=== PATIENT | male | born 2000 | race Caucasian/White ===

== ENCOUNTER 2025-05-22 12:53 | Outpatient (REF) | payer OTHER, SELFPAY ==
--- NOTE | 2025-05-22 12:59 | EMG_ITS ---
Chief complaint: Elbow pain, forearm pain and paresthesias Been told in the past to have bilateral cubital tunnel syndrome, previously EMG is not available for my review. Reason for referral: Evaluate for ulnar neuropathy versus Carpal Tunnel Syndrome Referred by: Dr. Don Wagner Procedure done: Upper extremity NCS/EMG Precautions and/or limitations: None The limb temperature was monitored continuously and remained between 32-36 degrees C during the performance of the NCS. Ulnar motor NCS was performed with moderate elbow flexion between 70-90 degrees, with across-elbow distance of 10 cm. Nerve Conduction Studies Anti Sensory Summary Table ?Stim Site NR Onset (ms) Norm Onset (ms) Peak (ms) Norm Peak (ms) O-P Amp (?V) Norm O-P Amp Site1 Site2 Delta-0 (ms) Dist (cm) Jony (m/s) Norm Jony (m/s) Left Median Anti Sensory (2nd Digit) Wrist ? 3.1 3.9 <3.6 32.6 >10 Wrist 2nd Digit 3.1 14.0 45 Right Median Anti Sensory (2nd Digit) Wrist ? 2.3 3.3 <3.6 40.6 >10 Wrist 2nd Digit 2.3 14.0 61 Left Radial Anti Sensory (Thumb) Forearm ? 2.0 2.4 <3.1 47.3 Forearm Thumb 2.0 0.0 Right Radial Anti Sensory (Thumb) Forearm ? 1.6 2.1 <3.1 18.6 Forearm Thumb 1.6 0.0 Left Ulnar Anti Sensory (5th Digit) Wrist ? 2.3 3.3 <3.7 15.0 >15.0 Wrist 5th Digit 2.3 14.0 61 Right Ulnar Anti Sensory (5th Digit) Wrist ? 2.5 3.3 <3.7 29.1 >15.0 Wrist 5th Digit 2.5 14.0 56 Motor Summary Table ?Stim Site NR Onset (ms) Norm Onset (ms) O-P Amp (mV) Norm O-P Amp iAmp (mV) Amp (1st) (%) Site1 Site2 Delta-0 (ms) Dist (cm) Jony (m/s) Norm Jony (m/s) Left Median Motor (Abd Poll Brev) Wrist ? 4.1 <3.9 9.0 >4.5 11.5 100.0 Elbow Wrist 4.3 23.0 53 >45 Elbow ? 8.4 9.6 12.0 106.7 Right Median Motor (Abd Poll Brev) Wrist ? 3.4 <3.9 12.0 >4.5 15.4 100.0 Elbow Wrist 4.6 27.0 59 >45 Elbow ? 8.0 12.1 15.3 100.8 Left Ulnar Motor (Abd Dig Minimi) Wrist ? 3.0 <3.0 8.4 >5 10.4 100.0 B Elbow Wrist 4.3 22.0 51 >45 B Elbow ? 7.3 8.9 11.0 106.0 A Elbow B Elbow 2.5 10.0 40 >45 A Elbow ? 9.8 8.2 9.9 97.6 Right Ulnar Motor (Abd Dig Minimi) Wrist ? 3.0 <3.0 10.9 >5 13.1 100.0 B Elbow Wrist 4.3 22.5 52 >45 B Elbow ? 7.3 9.1 11.1 83.5 A Elbow B Elbow 2.4 10.0 42 >45 A Elbow ? 9.7 8.7 10.5 79.8 EMG ?Side Muscle Nerve Root Ins Act Fibs Psw Amp Dur Poly Recrt Int Pat Comment Right 1stDorInt Ulnar C8-T1 Nml Nml Nml Nml Nml 0 Nml Complete Right Biceps Musculocut C5-6 Nml Nml Nml Nml Nml 0 Nml Complete Right Triceps Radial C6-7-8 Nml Nml Nml Nml Nml 0 Nml Complete Right Deltoid Axillary C5-6 Nml Nml Nml Nml Nml 0 Nml Complete Left 1stDorInt Ulnar C8-T1 Nml Nml Nml Nml Nml 0 Nml Complete Left Biceps Musculocut C5-6 Nml Nml Nml Nml Nml 0 Nml Complete Left Triceps Radial C6-7-8 Nml Nml Nml Nml Nml 0 Nml Complete Left Deltoid Axillary C5-6 Nml Nml Nml Nml Nml 0 Nml Complete Right FlexCarpiUln Ulnar C8,T1 Nml Nml Nml Nml Nml 0 Nml Complete Left FlexCarpiUln Ulnar C8,T1 Nml Nml Nml Nml Nml 0 Nml Complete FINDINGS: Bilateral ulnar motor nerve showed normal distal latency, normal amplitude and slow conduction velocity across the elbow. Left median motor nerve showed prolonged distal latency, normal amplitude and normal conduction velocity. Left median sensory nerve showed prolonged peak latency. All other nerves tested were within normal. Concentric needle EMG was performed in selected muscles of the upper extremity. Study did not reveal signs of electric abnormalities as shown in the table above. IMPRESSION: 1. This is an abnormal study. 2. There is electrodiagnostic evidence for bilateral ulnar neuropathy at the elbow. 3. There is electrodiagnostic evidence for left moderate-severe median neuropathy at the wrist, consistent with Carpal Tunnel Syndrome. 4. There is no electrodiagnostic evidence for brachial plexopathy or cervical radiculopathy. Thank you for your kind referral. Sena Quintero MD, MARIA DOLORES Board Certified, [place] Board [employer] and Rehabilitation (ABPMR) Board Certified, [place] Board of Electrodiagnostic Medicine (ABEM) CODIN [phone] x 2 extremities MTDD
--- OUTSIDE RECORDS SUMMARY | 2025-05-22 19:50 | XMS_ITS | Clinical Summary ---
Author Organization [address] Address [address] [place] [address] Phone Care Team Providers Care Deputy Attorney General Name Role Phone Pcp, Does Not Have A Primary Care Provider Unava ilable Allergies Active Allergy Reactions Criticality Noted Date Comments Seasonal Allergies Itching,Congestion Low Itchy Eyes Tree Pollen-Red Birch Anaphylaxis High 02/23/2022 Pt states he is allergic to birch Medications fexofenadine (RAISA) 180 mg tablet Take 1 tablet (180 mg total) by mouth daily. Active methocarbamoL (ROBAXIN) 500 mg tabletIndication s:Low back pain, unspecified back pain laterality, unspecified chronicity, unspecified whether sciatica present 1 tab po qhs prn back pain 20 tablet 08/11/2022 Active escitalopram oxalate (LEXAPRO) 10 mg tablet 08/23/2022 Active methylphenidate HCl (RITALIN) 10 mg immediate release tabletIndication s:Primary narcolepsy without cataplexy Take 1 tablet (10 mg total) by mouth 2 (two) times daily. 60 tablet 12/15/2022 Active modafiniL (PROVIGIL) 200 mg tabletIndication s:Primary narcolepsy without cataplexy 1 tab po q am 30 tablet 2 01/12/2023 Active Active Problems Problem Noted Date Diagnosed Date SOB (shortness of breath) on exertion 09/28/2022 Generalized muscle weakness 09/28/2022 Primary narcolepsy without cataplexy 02/23/2022 Immunizations Immunization Administration Dates Next Due Influenza, injectable, quadrivalent, preservativ e free 04/29/2022 Family History Medical History Relation Name Comments Psychosis Father Diabetes Maternal Grandfather Glaucoma Maternal Grandfather Heart disease Maternal Grandfather Hypertension Maternal Grandfather Diabetes Maternal Grandmother Hypertension Maternal Grandmother Myasthenia gravis Maternal Grandmother Diabetes Maternal Uncle Anemia Mother Diabetes Mother Asthma Paternal Aunt Lupus Paternal Aunt Rheumatoid arthritis Paternal Grandmother Relation Name Status Comments Father Alive Maternal Grandfather Alive Maternal Grandmother Alive Maternal Uncle Alive Mother Alive Paternal Aunt Alive Paternal Grandmother Social History Tobacco Use Types Packs/Day Years Used Date Smoking Tobacco: Former Cigarettes Smokeless Tobacco: Current Comments:Nicotine vape Alcohol Use Standard Drinks/Week Comments Yes 0 (1 standard drink = 0.6 oz pur e alcohol) 1-2 times a week Sex and Gender Information Value Date Recorded Sex Assigned at Male 06/10/2022 9:44 AM EST Legal Sex Male 12:22 PM EDT Gender Identity Male 06/10/2022 9:44 AM EST Sexual Orientation Something else 06/10/2022 9: 44 AM EST Last Filed Vital Signs Vital Sign Reading Time Taken Comments Blood Pressure 104/72 10/06/2022 3:56 PM EDT Pulse 72 10/06/2022 3:56 PM EDT Temperature 36.4 C (97.6 F) 10/06/2022 3:56 PM EDT Respiratory Rate 17 08/11/2022 2:35 PM EST Oxygen Saturation 99% 10/06/2022 3:56 PM EDT Inhaled Oxygen Concentration - - Weight 99.8 kg (220 lb) 10/06/2022 3:56 PM EDT Height 185.4 cm (6' 1 ) 09/09/2022 1:24 PM EDT Body Mass Index 29.03 09/09/2022 1:24 PM EDT Plan of Treatment Health Maintenance Due Date Last Done Comments HIV screening 2011 Hepatitis C screening 2016 Influenza vaccine 01/11/2025 04/29/2022, , 2019, Additional history exists Covid-19 vaccine series ( season) 2025 07/02/2020, 06/10/2020 Tetanus adult (Td q 10,TDAP once) 07/27/2026 07/27/2016, 07/27/2016, 07/14/2016 RSV Immunization (1 - 1-dose 75+ series) 2073 Meningococcal Vaccine Completed 07/27/2016 Meningococcal B Vaccine Aged Out No l onger eligible based on patient's age to complete this topic Pneumococcal Vaccine (2 - 49 years) Aged Out No longer eligible based on patient's age to complete this topic Insurance Care Teams Deputy Attorney General Relationship Specialty Start Date End Date Pcp, Does Not Have A PCP - General 09/25/21
--- OUTSIDE RECORDS SUMMARY | 2025-05-22 19:51 | XMS_ITS | Clinical Summary ---
Author Organization [facility] Address [address] [place] [address] Phone Care Team Providers Care Rotary Filter Operator Name Role Phone Sydnie Goyal MD Primary Care Provider [phone] Allergies No known active allergies Medications modafiniL (PROVIGIL) 200 mg tablet 1 tab po q am 01/12/2023 Active fexofenadine (RAISA) 180 mg tablet Take 1 tablet (180 mg total) by mouth daily. Active methocarbamoL (ROBAXIN) 500 mg tablet 1 tab po qhs prn back pain 08/11/2022 Active methylphenidate (RITALIN) 10 mg tablet Take 1 tablet (10 mg total) by mouth 2 times daily. Max Daily Amount: 20 mg 12/15/2022 Active cholecalciferol (VITAMIN D-3) 50 mcg (2,000 unit) tablet Take 1 tablet (2,000 Units total) by mouth 1 (one) time each day. Active Encounters Date Type Department Care Team Description 04/03/2025 Telephone Orthopedic Surgery - [place] [address] [address] Cyndi Hopkins MA from Last 3 Months Social History Tobacco Use Types Packs/Day Years Used Date Smoking Tobacco: Never Assessed Sex and Gender Information Value Date Recorded Sex Assigned at Not on file Legal Sex Male 8:35 AM EDT Gender Identity Not on file Sexual Orientation Not on file Last Filed Vital Signs Vital Sign Reading Time Taken Comments Blood Pressure - - Pulse - - Temperature - - Respiratory Rate - - Oxygen Saturation - - Inhaled Oxygen Concentration - - Weight 77.1 kg (170 lb) 01/30/2025 2:59 PM EDT Height 188 cm (6' 2 ) 01/30/2025 2:59 PM EDT Body Mass Index 21.83 01/30/2025 2:59 PM EDT Plan of Treatment Health Maintenance Due Date Last Done Comments DTaP,Tdap,and Td Vaccines (1 - Tdap) 2017 Hepatitis B Vaccines (1 of 3 - 19+ 3-dose series) 2017 Depression Screening 06/13/2024 HIV Screening 01/15/2025 Hepatitis C Screening 01/15/2025 Social Influencers of Health Screening 01/15/2025 COVID-19 Vaccine (1 - 2024-2 6 season) 2025 Influenza Vaccine (#1) 2025 , 04/29/2022 HPV Vaccines (1 - 3-dose SCD M series) 2025 RSV Immunization Adult Patients (1 - 1-dose 75+ series) 2073 HIB Vaccines Aged Out No longer eligi ble based on patient's age to complete this topic Hepatitis A Vaccines Aged Out No long er eligible based on patient's age to complete this topic IPV Vaccines Aged Out No longer eligi ble based on patient's age to complete this topic MMR Vaccines Aged Out No longer eligi ble based on patient's age to complete this topic Meningococcal ACWY Vaccine Aged Out N o longer eligible based on patient's age to complete this topic Meningococcal B Vaccine Aged Out No l onger eligible based on patient's age to complete this topic Pneumococcal Vaccine: Pediatrics (0 to 5 Years) and At-Risk Patients (6 to 49 Years) Aged Out No longer eligible b ased on patient's age to complete this topic RSV Immunization Patients Under 20 months Aged Out No longer eligible b ased on patient's age to complete this topic Varicella Vaccines Aged Out No longer eligible based on patient's age to complete [place] [address] Care Teams Rotary Filter Operator Relationship Specialty Start Date End Date October, Sydnie Alfonso MD [address] [place] [address] PCP - General Internal Medicine 01/15/25
--- OUTSIDE RECORDS SUMMARY | 2025-05-22 19:51 | XMS_ITS | Encounter Summary ---
Author Organization [facility] Address [address] [place] [address] Care Team Providers Care Barrel Reamer Name Role Phone Pcp, Does Not Have A Primary Care Provider Unava ilable Reason for Visit * Reason Comments Medication Refill Encounter Details Date Type Department Care Team ([facility] st Contact Info) Description 05/06/2023 Refill [facility] [place] [address] [place] [address] Sherri England, PA [address] [place] [id number] Medication Refill Social History Tobacco Use Types Packs/Day Years [...] Something else 06/10/2022 9: 44 AM EST documented as of this encounter Miscellaneous Notes * Telephone Encounter - Evelina Mcintyre - 05/06/2023 7:07 AM EST MEDICATION REFILLS Time of Call: 7:07 AM Confirmed w/ Patient Preferred [facility]acy: [facility] [address] Last office visit: 09/09/2022 Next office visit: Visit date not found documented in this encounter Plan of Treatment Not on file documented as of this encounter Visit Diagnoses Diagnosis Primary narcolepsy without cataplexy documented in this encounter Care Teams Barrel Reamer Relationship Specialty Start Date End Date Pcp, Does Not Have A PCP - General 09/25/21 documented as of this encounter
--- OUTSIDE RECORDS SUMMARY | 2025-05-22 19:51 | XMS_ITS | Encounter Summary ---
Author Organization [facility] Address [address] [place] [address] Care Team Providers Care Contracting Executive Name Role Phone Pcp, Does Not Have A Primary Care Provider Unava ilable Reason for Visit * Reason Comments Medication Refill Encounter Details Date Type Department Care Team ([facility] st Contact Info) Description 12/24/2022 Refill [facility] Sleep Medicine [place] [address] [place] [address] Sherri England, PA [address] [place] [address] Medication Refill Social History Tobacco Use Types [...] AM EST documented as of this encounter Plan of Treatment Not on file documented as of this encounter Visit Diagnoses Diagnosis Primary narcolepsy without cataplexy documented in this encounter Care Teams Contracting Executive Relationship Specialty Start Date End Date Pcp, Does Not Have A PCP - General 09/25/21 documented as of this encounter
--- OUTSIDE RECORDS SUMMARY | 2025-05-22 19:51 | XMS_ITS | Encounter Summary ---
Author Organization [facility] Address [address] [place] [address] Care Team Providers Care Commercial Green Building Designer Name Role Phone Pcp, Does Not Have A Primary Care Provider Unava ilable Reason for Referral * Consultation (Routine) - Closed Specialty Diagnoses / Procedures Referred By Contnickie t Referred To Contact Neurology Diagnoses Narcolepsy due to underlying condition without cataplexy Clifton Howe MD Constantino Buenomadison [address] [address] Phone: tel: fax: Dee Ott MD [address] [place] [phone] Phone: tel: fax: Referral ID Status Reason Start Date Expiration Date V isits Requested Visits Authorized [id number] Closed Specialty Services Required 09/10/2022 09/10/2023 1 1 Encounter Details Date Type Department Care Team (Latest Contact Info) Description 09/10/2022 Transcribed Orders EXTERNAL REFERRAL SOURCE [address] [place] [id number] Clifton Howe MD [address]ino Buenom[address] [address] Narcolepsy due to underlying condition without cataplexy (Primary Dx) Social History Tobacco Use Types Packs/Day Years Used Date Smoking Tobacco: Former Cigarettes Smokeless Tobacco: Current Comments:Nicotine vape Sex and Gender Information Value Date Recorded Sex Assigned at Male 06/10/2022 9:44 AM EST Legal Sex Male 12:22 PM EDT Gender Identity Male 06/10/2022 9:44 AM EST Sexual Orientation Something else 06/10/2022 9: 44 AM EST documented as of this encounter Plan of Treatment Scheduled Referrals Name Type Priority Associated Diagnoses Orde r Schedule Amb Referral Neurology [place] ([facility]) Outpatient Referral Routine Narcolepsy due to underlying condition without cataplexy Ordered: 09/10/2022 documented as of this encounter Visit Diagnoses Diagnosis Narcolepsy due to underlying condition without cataplexy- Primary documented in this encounter Care Teams Commercial Green Building Designer Relationship Specialty Start Date End Date Pcp, Does Not Have A PCP - General 09/25/21 documented as of this encounter
--- OUTSIDE RECORDS SUMMARY | 2025-05-22 19:51 | XMS_ITS | Encounter Summary ---
Author Organization [facility] Address [address] [place] [address] Care Team Providers Care Field Hockey Coach Name Role Phone Pcp, Does Not Have A Primary Care Provider Unava ilable Encounter Details Date Type Department Care Team ([facility] st Contact Info) Description 09/10/2022 Abstract [facility] Neuro [place] [address] [facility] [place] [address] Dee Ott MD [address] [facility] [address] [place] [address] Social History Tobacco Use Types Packs/Day Years [...] documented as of this encounter Visit Diagnoses Not on filedocumented in this encounter Care Teams Field Hockey Coach Relationship Specialty Start Date End Date Pcp, Does Not Have A PCP - General 09/25/21 documented as of this encounter
--- OUTSIDE RECORDS SUMMARY | 2025-05-22 19:51 | XMS_ITS | Encounter Summary ---
Author Organization [facility] Address [address] [place] [address] Care Team Providers Care Crane Hoist Or Lift Operator Name Role Phone Pcp, Does Not Have A Primary Care Provider Unava ilable Encounter Details Date Type Department Care Team (Late st Contact Info) Description 01/10/2023 Scanned Document [facility] Neuro [place] [address] [facility] [place] [address] Dee Ott MD [address] [facility] [address] [place] [address] Social History Tobacco Use Types Packs/Day Years [...] on filedocumented in this encounter Care Teams Crane Hoist Or Lift Operator Relationship Specialty Start Date End Date Pcp, Does Not Have A PCP - General 09/25/21 documented as of this encounter
== END 2025-05-22 12:54 | disposition home or self-care (01) ==
LOC: HO.NEURO 12:53
PROVIDERS: Visit Provider Student in an Organized Health Care Education/Training Program
DX: G56.03 Carpal tunnel syndrome, bilateral upper limbs (principal); G56.23 Lesion of ulnar nerve, bilateral upper limbs
CPT/HCPCS: 95886; 95911

== ENCOUNTER → 2025-05-22 12:59 | Outpatient (BNV) | payer OTHER, SELFPAY | PROVIDERS: Visit Provider Physical Medicine & Rehabilitation | DX: G56.23 Lesion of ulnar nerve, bilateral upper limbs (principal); G56.02 Carpal tunnel syndrome, left upper limb | CPT/HCPCS: 95886; 95911 ==